=== PATIENT | male | born 1940 | race Caucasian/White ===

== ENCOUNTER 2018-09-21 20:43 | Emergency (ER) | payer MEDICARE, BC ==
[~2018-09-21] VITALS: Ht 175.3 cm; Wt 94.0 kg
[2018-09-21] MEDS ORDERED: OXYMETAZOLINE NASAL SPRAY 0.05%, 15ML NAS ONE (22:00)
[2018-09-21] MEDS ORDERED: OXYMETAZOLINE NASAL SPRAY 0.05%, 15ML ONE (22:03)
[2018-09-21 23:45] VITALS: BP 114/64
== END 2018-09-21 23:47 | disposition home or self-care (01) ==
LOC: ED 21:46
DX: R04.0 Epistaxis (principal); R06.02 Shortness of breath; R07.89 Other chest pain; I10 Essential (primary) hypertension
CPT/HCPCS: 99283